=== PATIENT | male | born 1965 | race Caucasian/White ===

== ENCOUNTER 2017-03-19 08:08 | Emergency (ER) | payer SELFPAY ==
[2017-03-19 08:29] VITALS: BP 193/100
[2017-03-19] MEDS ORDERED: Lidocaine 1% MPF* 2 ML VIAL ONE (09:50)
--- NOTE | 2017-03-19 10:17 | UC ---
Toribio Bynum Benjamin, scribed for Chong Solitario MD on 03/19/17 at 0935 . Skin Complaint HPI - HPI Summary HPI Summary: 51yo male c/o a lump on his upper back that was there for about 5 days. Pt lump is red and swollen. Initially thought a bug bite, but the lump has been getting worse, and since yesterday, has been painful. Pain intensity of 10 out of 10. Hx of abscess on buttock 3 yrs ago. Pt is diabetic. - History of Current Complaint Chief Complaint: UCSkin Time Seen by Provider: 03/19/17 09:19 Stated Complaint: SPOT ON BACK Hx Obtained From: Patient Onset/Duration: Gradual Onset, Lasting Days - 5 days, Still Present Skin Exposure Onset/Duration: Worse Since: - yesterday Onset Severity: Mild Current Severity: Severe Pain Intensity: 10 Pain Scale Used: 0-10 Numeric Location: Other - upper back Aggravating: Nothing Alleviating: Nothing Associated Signs & Symptoms: Positive: Negative - Allergy/Home Medications Allergies/Adverse Reactions: Allergies Allergy/AdvReac Type Severity Reaction Status Date / Time No Known Allergies Allergy Verified 03/19/17 08:23 Review of Systems Constitutional: Negative Skin: Other - upper back abscess Eyes: Negative ENT: Negative Respiratory: Negative Cardiovascular: Negative Gastrointestinal: Negative Genitourinary: Negative Motor: Negative Neurovascular: Negative Musculoskeletal: Negative Neurological: Negative Psychological: Negative All Other Systems Reviewed And Are Negative: Yes PMH/Surg Hx/FS Hx/Imm Hx Endocrine History Of: Reports: Diabetes - not taking his glyburide Cardiovascular History Of: Reports: Hypertension - not taking his lisinopril - Surgical History Surgical History: None - Social History Alcohol Use: None Substance Use Type: None Smoking Status (MU): Former Smoker Length of Time of Smoking/Using Tobacco: 30 years Have You Smoked in the Last Year: No Physical Exam Triage Information Reviewed: Yes Appearance: Well-Appearing, Obese Vital Signs: Initial Vital Signs Temp 97.4 F 03/19/17 08:24 Pulse 109 03/19/17 08:24 Resp 16 03/19/17 08:24 BP 193/100 03/19/17 08:24 Pulse Ox 97 03/19/17 08:24 Eye Exam: Normal ENT Exam: Normal Neck exam: Normal Respiratory: Positive: Chest non-tender, Lungs clear Cardiovascular: Positive: RRR Abdomen Description: Positive: Other: - obese Neurological Exam: Normal Psychological Exam: Normal Skin: Positive: Other - There is a 3 inch diameter area of red indurated skin with an additional 2 inch diameter area of induration that is not red on the upper right back medial to the scapula. No obvious fluctuance is palpated, but this is a large tenting area of swelling under tension. Course/Dx - Course Course Of Treatment: 51 yr old diabetic male with large abscess/skin infection upper back. I have recommended transport to the ER by ambulance for further evaluation. given his diabetes he would need bun,cr labs checked, and an IV contrast CT would help determine if he has infection tracking deeper into his scapula area which he is complaining of pain about. - Differential Diagnoses - Skin Complaint Differential Diagnoses: Abscess - Diagnoses Provider Diagnoses: Abscess upper back, elevated blood pressure, diabetes mellitus. - Physician Notification/Consults Discussed Patient Care With: JANEE An Time Discussed With Above Provider: 10:16 Procedures - Incision and Drainage Site: right upper back medial to the right scapula Anesthesia: Local, Lidocaine - 1 percent Instrument(s): Scalpel - 11 blade, Needle - 18 guage needle, Other - a total incision of 1 cm made no pus expressed. Packing: Other - no fluid or pus obtained. estimated blood loss 1 cc Discharge - Discharge Plan Condition: Good Disposition: AGAINST MEDICAL ADVICE The documentation as recorded by the Toribio carlos Benjamin accurately reflects the service I personally performed and the decisions made by , Chong Solitario MD.
== END 2017-03-19 10:20 | disposition left against medical advice (07) ==
LOC: UCEAST 08:08
DX: L02.212 Cutaneous abscess of back [any part, except buttock and flank] (principal); R03.0 Elevated blood-pressure reading, without diagnosis of hypertension; E11.9 Type 2 diabetes mellitus without complications; I10 Essential (primary) hypertension; E66.9 Obesity, unspecified; Z87.891 Personal history of nicotine dependence
CPT/HCPCS: 10060; 99212; G0463

== ENCOUNTER → 2017-03-19 10:37 | Emergency (ER) | payer SELFPAY ==
[~2017-03-19 10:37] MED LIST: Ibuprofen TAB* 800 MG PO ONE; NS 0.9% 1000 ML* 1,000 ML IV ONE
[2017-03-19 10:42] VITALS: BP 158/90
[2017-03-19 12:37] LABS: Hematocrit 48 % (42-52); Mean Corpuscular HGB Conc 33 g/dl (31-36); Mean Corpuscular Hemoglobin 30 pg (27-31); Mean Corpuscular Volume 92 fL (80-94); Red Blood Count 5.27 10^6/ul (4.0-5.4); Red Cell Distribution Width 13 % (10.5-15); White Blood Count 12.7 10^3/ul (3.5-10.8)
[2017-03-19 12:40] LABS: Comments Flag Yes
[2017-03-19 12:41] LABS: Add Diff/Slide Review? Slide Review Added
[2017-03-19 12:43] LABS: BUN/Creatinine Ratio 25.9 (8-20); Calcium 9.7 mg/dL (8.6-10.3); EGFR African American 191.5 (>60); EGFR Non-African American 148.9 (>60); Globulin 3.9 g/dL (2-4); Potassium 4.2 mmol/L (3.5-5.0); Total Bilirubin 0.7 mg/dL (0.2-1.0); Total Protein 7.9 g/dL (6.4-8.9)
--- NOTE | 2017-03-19 13:29 | RAD ---
Indication: Mass on the right side of the back. Real-time sonography of the right side of the back was performed. There is Echo complex hypoechoic lesion measuring 22 x 26 x 27 mm. Internal echoes are noted. This may represent hematoma. Clinical correlation is suggested. IMPRESSION: Avascular echo complex mass in the area of the palpable nodule which May represent hematoma although abscess is not excluded.
--- NOTE | 2017-03-19 13:32 | ED ---
Skin Complaint - History of Current Complaint Chief Complaint: EDRashSkinAbscess Time Seen by Provider: 03/19/17 11:40 Stated Complaint: POSSIBLE INFECTION IN BACK Pain Intensity: 10 - Allergy/Home Medications Allergies/Adverse Reactions: Allergies Allergy/AdvReac Type Severity Reaction Status Date / Time No Known Allergies Allergy Verified 03/19/17 08:23 PMH/Surg Hx/FS Hx/Imm Hx Endocrine/Hematology History: Reports: Hx Diabetes - not taking his glyburide Cardiovascular History: Reports: Hx Hypertension - not taking his lisinopril Infectious Disease History: Denies: Traveled Outside the [place] in Last 30 Days - Social History Alcohol Use: None Substance Use Type: Reports: None Smoking Status (MU): Former Smoker Length of Time of Smoking/Using Tobacco: 30 years Have You Smoked in the Last Year: No Physical Exam Vital Signs On Initial Exam: Initial Vitals Temp Pulse Resp BP Pulse Ox 97.5 F 120 18 158/90 99 03/19/17 10:40 03/19/17 10:40 03/19/17 10:40 03/19/17 10:40 03/19/17 10:40 Diagnostics - Vital Signs Vital Signs Temp Pulse Resp BP Pulse Ox 03/19/17 11:15 97.5 F 120 18 158/90 99 03/19/17 10:40 97.5 F 120 18 158/90 99 - Laboratory Lab Results: Lab Results 03/19/17 03/19/17 03/19/17 Range/Units 12:10 12:10 12:45 WBC 12.7 H (3.5-10.8) 10^3/ul RBC 5.27 (4.0-5.4) 10^6/ul Hgb 16.0 (14.0-18.0) g/dl Hct 48 (42-52) % MCV 92 (80-94) fL MCH 30 (27-31) pg MCHC 33 (31-36) g/dl RDW 13 (10.5-15) % Plt Count Pending MPV Pending Neut % (Auto) 77.1 (38-83) % Lymph % (Auto) 14.5 L (25-47) % [place] % (Auto) 7.2 (1-9) % Eos % (Auto) 0.3 (0-6) % Baso % (Auto) 0.9 (0-2) % Absolute Neuts (auto) 9.8 H (1.5-7.7) 10^3/ul Absolute Lymphs (auto) 1.8 (1.0-4.8) 10^3/ul Absolute Monos (auto) 0.9 H (0-0.8) 10^3/ul Absolute Eos (auto) 0 (0-0.6) 10^3/ul Absolute Basos (auto) 0.1 (0-0.2) 10^3/ul Absolute Nucleated RBC 0.01 10^3/ul Nucleated RBC % 0.1 Sodium 131 L (133-145) mmol/L Potassium 4.2 (3.5-5.0) mmol/L Chloride 98 L (101-111) mmol/L Carbon Dioxide 15 L (22-32) mmol/L Anion Gap 18 H (2-11) mmol/L BUN 15 (6-24) mg/dL Creatinine 0.58 L (0.67-1.17) mg/dL Est GFR ( Amer) 191.5 (>60) Est GFR (Non-Af Amer) 148.9 (>60) BUN/Creatinine Ratio 25.9 H (8-20) Glucose 363 H (70-100) mg/dL Lactic Acid 0.9 (0.5-2.0) mmol/L Calcium 9.7 (8.6-10.3) mg/dL Total Bilirubin 0.70 (0.2-1.0) mg/dL AST 20 (13-39) U/L ALT 27 (7-52) U/L Alkaline Phosphatase 89 (34-104) U/L Total Protein 7.9 (6.4-8.9) g/dL Albumin 4.0 (3.2-5.2) g/dL Globulin 3.9 (2-4) g/dL Albumin/Globulin Ratio 1.0 (1-3) Result Diagrams: 03/19/17 12:10 03/19/17 12:10 Lab Statement: Any lab studies that have been ordered have been reviewed, and results considered in the medical decision making process. - Ultrasound No standard instances Ultrasound Interpretation: Positive (See Comments) - : Avascular echo complex mass in the area of the palpable nodule which May represent hematoma although abscess is not excluded. Ultrasound Interpretation Completed By: Radiologist Course/Dx - Diagnoses Provider Diagnoses: Cellulitis of back, Abscess of upper back excluding scapular region Discharge - Discharge Plan Condition: Stable Disposition: HOME Prescriptions: Cephalexin CAP* [Keflex CAP*] 500 mg PO TID #30 cap Sulfamethox/Trimethoprim DS* [Bactrim DS 800/160 TAB*] 1 tab PO BID #20 tab Patient Education Materials: Abscess (ED), Cellulitis (ED) Referrals: Poncho Glass MD [Primary Care Provider] - Additional Instructions: Take prescribed medications as directed to help with infection. Please make an appointment with your primary care provider for close follow up. Warm compresses on area. Ibuprofen for pain and inflammation. If you develop worsening signs and symptoms such as fever/chills, redness, swelling and discharge please seek medical attention promptly. Drink plenty of fluids and try to keep your sugar under control, taking the left over Metformin.
== END | disposition home or self-care (01) ==
LOC: ED 10:37
DX: L03.312 Cellulitis of back [any part except buttock and flank] (principal); L02.212 Cutaneous abscess of back [any part, except buttock and flank]; E11.9 Type 2 diabetes mellitus without complications; I10 Essential (primary) hypertension; Z87.891 Personal history of nicotine dependence
CPT/HCPCS: 36415; 76705; 80053; 83605; 85025; A9270-GY

== ENCOUNTER 2019-06-25 14:32 | Emergency (ER) | payer BC ==
--- NOTE | 2019-06-25 15:16 | ED ---
GI/ HPI - HPI Summary HPI Summary: The pt is a 53 yr old male [facility] c/o inability to urinate beginning last night. He states that these symptoms began a few days ago but that he was attempting to pee every 10 minutes last night without success. He mentions that he is only able to pee in dribbles and that his bladder is painful, rating its severity an 8/10. No aggravating or alleviating factors noted. He is a former smoker and has Hx of DM. - History of Current Complaint Chief Complaint: EDUrogenitalProblems Time Seen by Provider: 06/25/19 14:51 Stated Complaint: UNABLE TO URINATE Hx Obtained From: Patient Onset/Duration: Started Days Ago, Still Present Timing: Constant, Lasting Days Severity: Severe Current Severity: Severe Pain Intensity: 8 Location of Pain: Suprapubic Associated Signs and Symptoms: Positive: Abdominal Pain, Other: - pos - inability to pee, urgency - Allergy/Home Medications Allergies/Adverse Reactions: Allergies Allergy/AdvReac Type Severity Reaction Status Date / Time No Known Allergies Allergy Verified 06/25/19 14:38 PMH/Surg Hx/FS Hx/Imm Hx Endocrine/Hematology History: Reports: Hx Diabetes - not taking his glyburide Cardiovascular History: Reports: Hx Hypertension - not taking his lisinopril Sensory History: Denies: Hx Legally Blind, Hx Deafness Opthamlomology History: Denies: Hx Legally Blind EENT History: Denies: Hx Deafness - Surgical History Surgical History: None Surgery Procedure, Year, and Place: none Infectious Disease History: No Infectious Disease History: Denies: Traveled Outside the [place] in Last 30 Days - Family History Known Family History: Positive: Cardiac Disease, Diabetes - Social History Alcohol Use: None Substance Use Type: Reports: None Smoking Status (MU): Former Smoker Length of Time of Smoking/Using Tobacco: 30 years Have You Smoked in the Last Year: No Review of Systems Positive: Abdominal Pain Positive: urgency, other - pos - inability to pee All Other Systems Reviewed And Are Negative: Yes Physical Exam - Summary Physical Exam Summary: GENERAL: Patient is a well-developed and nourished male who is lying comfortable in the stretcher. Patient is not in any acute respiratory distress. HEAD AND FACE: Normocephalic EYES: PERRLA, EOMI x 2. EARS: Hearing grossly intact. MOUTH: Oropharynx within normal limits. NECK: Supple, trachea is midline, no adenopathy, no JVD, no carotid bruit. CHEST: Symmetric, no tenderness at palpation LUNGS: Clear to auscultation bilaterally. No wheezing or crackles. CVS: Regular rate and rhythm, S1 and S2 present, no murmurs or gallops appreciated. ABDOMEN: Soft. Tenderness to the suprapubic region. Bowel sounds are normal. No abnormal abdominal pulsations. EXTREMITIES: Full ROM in all major joints, no edema, no cyanosis or clubbing. NEURO: Alert and oriented x 3. No acute neurological deficits. Speech is normal and follows commands. SKIN: Dry and warm Triage Information Reviewed: Yes Vital Signs On Initial Exam: Initial Vitals Temp Pulse Resp BP Pulse Ox 96.9 F 109 16 161/86 98 06/25/19 14:34 06/25/19 14:34 06/25/19 14:34 06/25/19 14:34 06/25/19 14:34 Vital Signs Reviewed: Yes Diagnostics - Vital Signs Vital Signs Temp Pulse Resp BP Pulse Ox 06/25/19 14:34 96.9 F 109 16 161/86 98 - Laboratory Result Diagrams: 06/25/19 15:47 06/25/19 15:47 Lab Statement: Any lab studies that have been ordered have been reviewed, and results considered in the medical decision making process. Re-Evaluation - Re-Evaluation First Eval Re-Evaluation Time: 18:00 - pt will be given additional 1000mls of fluids. GIGU Course/Dx - Course Course Of Treatment: The pt is a 53 yr old male presenting to [facility] c/o inability to urinate beginning last night. The pt has persistent tachycardia ranging between 100-109 bpm. He states that this is his baseline heartrate since his last visit to his PCP 5 years ago. Physical exam is only notable for tenderness to the suprapubic region. Test results normal except for WBC @ 13.7, Absolute neuts @ 11.7, Absolute Monos @ 0.9, Chloride @ 99, Anion Gap @ 14, BUN @ 26, BUN/Creatinine @ 32.1, Glucose @ 411, AST @ 11, Alkaline Phosphatase @ 112 , 1+ Ur Protein, 1+ Ur Ketones, 2+ Ur Blood, Urine Nitrate Positive, 3+ Ur Leukocyte esterase, 3+ Ur WBC, 3+ Ur RBC, Ur Squamous Epith Cells present, 2+ Ur Bacteria, and 3+ Ur Glucose. The pt will be discharged home. I discussed results with patient, and he reports feeling better. He is hemodynamically stable except for tachycardia, but this is his baseline heart rate. He is otherwise safe for discharge. Strict return precautions given and he will otherwise follow up with his PCP and urologist. - Diagnoses Provider Diagnoses: Hyperglycemia, Diabetes mellitus, UTI (urinary tract infection), Urine retention Discharge - Sign-Out/Discharge Documenting (check all that apply): Patient Departure - discharge Patient Received Moderate/Deep Sedation with Procedure: No - Discharge Plan Condition: Stable Disposition: HOME Prescriptions: Cefdinir [Cefdinir 300 MG CAP] 300 mg PO BID 7 Days #14 capsule Patient Education Materials: Urinary Retention in Men (ED), Dysuria (ED), Diabetic Hyperglycemia (ED) Referrals: Poncho Glass MD [Primary Care Provider] - 3 Days Carlo Fitzpatrick MD [Medical Doctor] - 3 Days - Billing Disposition and Condition Condition: STABLE Disposition: Home - Attestation Statements Document Initiated by Yola: Yes Documenting Scribe: David Stratton Provider For Whom Simranibe is Documenting (Include Credential): Surekha Connelly MD Scribe Attestation: IDavid, scribed for Surekha Connelly MD on 06/25/19 at 1854. Scribe Documentation Reviewed: Yes Provider Attestation: The documentation as recorded by the David carlos accurately reflects the service I personally performed and the decisions made by me, Surekha Connelly MD Status of Scribe Document: Viewed
[2019-06-25 15:24] LABS: Urine Appearance Turbid; Urine Bacteria 2+ (Absent); Urine Bilirubin Negative (Negative); Urine Blood 2+ (Negative); Urine Color Yellow; Urine Glucose 3+(>=500 mg/dL) (Negative); Urine Ketones 1+ (Negative); Urine Nitrite Positive (Negative); Urine Protein 1+(30 mg/dL) (Negative); Urine Red Blood Cell 3+(>10/hpf) (Absent); Urine Specific Gravity 1.028 (1.010-1.030); Urine Squamous Epithelial Cell Present (Absent); Urine Urobilinogen Negative (Negative); Urine White Blood Cell 3+(>20/hpf) (Absent)
[2019-06-25] MEDS ORDERED: cefTRIAXone(*) 1 GM in NS 0.9% 50 ML* 50 ML IVPB ONE (15:40)
[2019-06-25] MEDS ORDERED: NS 0.9% 1000 ML** 1,000 ML IV ONE ×2 (15:40→17:42)
[2019-06-25] MEDS ORDERED: Nystatin CREAM* 15 GM TUBE TOPICAL ONE (15:41)
[2019-06-25] MEDS ORDERED: Fluconazole 150 MG TAB PO ONE (15:41)
[2019-06-25 15:52] LABS: ABS Monocytes 0.9 10^3/ul (0-0.8); ABS Neutrophils 11.7 10^3/ul (1.5-7.7); Hematocrit 45 % (42-52); Hemoglobin 15.2 g/dL (14.0-18.0); Lymphocyte % 7.6 %; Mean Corpuscular HGB Conc 34 g/dL (31-36); Mean Corpuscular Hemoglobin 31 pg (27-31); Mean Corpuscular Volume 90 fL (80-94); Mean Platelet Volume 8.2 fL (7.4-10.4); Platelet Count 289 10^3/uL (150-450); Red Blood Count 4.96 10^6 /uL (4.18-5.48); Red Cell Distribution Width 13 % (10-15); White Blood Count 13.7 10^3/uL (3.5-10.8)
[2019-06-25 16:08] LABS: BUN/Creatinine Ratio 32.1 (8-20); Calcium 9.4 mg/dL (8.6-10.3); EGFR African American 121.6 (>60); EGFR Non-African American 100.5 (>60); Globulin 3.9 g/dL (2-4); Potassium 4.4 mmol/L (3.5-5.0); Total Bilirubin 0.8 mg/dL (0.2-1.0); Total Protein 7.9 g/dL (6.4-8.9)
[2019-06-25] MEDS ORDERED: Insulin REGULAR(*) 1 UNITS UNIT IV PUSH ONE (16:31)
[2019-06-25 19:08] VITALS: BP 158/97
--- NOTE | 2019-06-27 06:05 | PN ---
Progress Note - Progress Note Date of Service: 06/25/19 Note: Urine culture preliminary grew Staphylococcus aureus 100,000 Patient was placed on Cefdinir prior to DC We will await sensitivities
--- NOTE | 2019-06-28 06:10 | PN ---
Progress Note - Progress Note Date of Service: 06/28/19 Note: patient urine culture grew staph >100,000. patient was placed on cefdnir which cephalosporins are sensitive to. no further action required.
== END 2019-06-25 19:07 | disposition home or self-care (01) ==
LOC: ED 14:32
DX: E11.65 Type 2 diabetes mellitus with hyperglycemia (principal); N39.0 Urinary tract infection, site not specified; B95.61 Methicillin susceptible Staphylococcus aureus infection as the cause of diseases classified elsewhere; R33.9 Retention of urine, unspecified; I10 Essential (primary) hypertension; Z87.891 Personal history of nicotine dependence
CPT/HCPCS: 36415; 80053; 81003; 81015; 83036; 83605; 83690; 85025; 87077; 87086; 87186; 96361; 96365; 96375; 99283; A9270-GY; J0696